=== PATIENT | female | born 1990 | race Caucasian/White ===

== ENCOUNTER 2022-09-06 18:46 | Emergency (ER) | payer MEDICAID, SELFPAY ==
[2022-09-06 18:47] VITALS: BP 156/121; PULSE 94; RESP 16; TEMP 36.4; O2SAT 97; BMI 19.1
[2022-09-06 18:52] VITALS: O2SAT 98
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
[2022-09-06 19:12] LABS: Absolute Lymphocyte Count 2.32 X10^3/uL (0.83-4.51); Absolute Neutrophil Count 13.8 X10^3/uL (2.0-7.7); Basophil# 0.06 X10^3/uL; Basophil% 0.4 % (0-1); Eosinophil# 0.04 X10^3/uL; Eosinophils% 0.2 % (0-5); Hematocrit 37.1 % (37-47); Hemoglobin 12.5 g/dL (12.0-15.0); Lymphocyte # 2.32 X10^3/ul (0.83-4.51); Lymphocyte % 13.7 % (19-41); Mean Corp Hgb Conc 33.7 g/dL (32-36); Mean Corpuscular Hgb 31.8 pg (27.0-32.0); Mean Corpuscular Volume 94.4 fL (81-99); Mean Platelet Vol. 10.5 fl (6.2-12.0); Monocyte# 0.58 X10^3/uL; Monocyte% 3.4 % (0-10); NRBC Flagged by Analyzer 0 % (0-5); Neutrophil # 13.76 X10^3/uL (2.7-7.7); Neutrophil % 81.2 % (47-70); Platelet Count 311 K/mm3 (150-450); RBC Distribution Width CV 12.1 % (11.6-14.6); RBC Distribution Width SD 42.5 fl (35.1-43.9); Red Blood Count 3.93 M/mm3 (4.2-5.4); White Blood Count 16.9 K/mm3 (4.4-11.0)
[2022-09-06 19:18] LABS: Internal QC Validated? YES +Cl - CLEAR BKGD; Pregnancy, Serum, hCG Quali. NEGATIVE Negative
[2022-09-06 19:20] LABS: International Normalized Ratio 1.1; Prothrombin Time (Protime)PT. 14.4 SECONDS (11.7-14.9)
[2022-09-06 19:24] LABS: Anion Gap 6 (5-15); BUN 9 mg/dL (7-18); BUN/Creat Ratio 10.9 RATIO (10-20); Chloride 108 mmol/L (98-107); Creatinine, Serum 0.83 mg/dL (0.55-1.02); EST Glomerular Filtration Rate 86 mL/min (>60); Est Glom Filt Rate - Afr Amer 104 mL/min (>60); Estimated Creatinine Clearance 80.87 ml/min; Glucose 155 mg/dL (74-106); Potassium 3.6 mmol/L (3.5-5.1); Sodium Level 141 mmol/L (136-145)
--- NOTE | 2022-09-06 19:45 | RAD_ITS ---
STUDY: X-RAY - RIGHT TIBIA AND FIBULA REASON FOR EXAM: Female, 32 years old. pain TECHNIQUE: 4 view(s) of the tibia and fibula were obtained. COMPARISON: None. FINDINGS: Normal visualized tibia. Normal visualized fibula. The soft tissue structures are unremarkable. RAD/Tibia & Fibula 2 Views IMPRESSION: Normal x-ray examination of the tibia and fibula. Electronically Signed: Layo Temple MD at 20:11 EST ,
--- NOTE | 2022-09-06 19:45 | RAD_ITS ---
STUDY: X-RAY - PELVIS AND RIGHT HIP REASON FOR EXAM: Female, 32 years old. pain TECHNIQUE: 3 views of the pelvis and hip. COMPARISON: None. FINDINGS: There is a non-specific bowel gas pattern. Normal visualized soft tissue structures. Normal bilateral iliac wings, sacroiliac joints and visualized sacrum. Acute mildly displaced comminuted fractures of the distal bilateral superior pubic rami. Normal pubic symphysis. Normal bilateral ischial tuberosities. Normal visualized femoral head. Normal acetabulum. Normal hip joint. RAD/HIP, UNI W/ Pelvis 2-3 Views IMPRESSION: Normal right hip. Acute mildly displaced fractures of the distal superior pubic rami bilaterally Electronically Signed: Layo Temple MD at 20:11 EST ,
--- NOTE | 2022-09-06 19:45 | RAD_ITS ---
STUDY: X-RAY - RIGHT SHOULDER REASON FOR EXAM: Female, 32 years old. right TECHNIQUE: 2 view(s) of the shoulder. COMPARISON: None. FINDINGS: Normal glenohumeral articulation. Normal acromioclavicular joint. Normal acromion. Normal humeral head and visualized proximal humerus. The soft tissue structures are unremarkable. Normal visualized pulmonary apex. RAD/Shoulder min 2 Views IMPRESSION: Normal x-ray examination of the shoulder. Electronically Signed: Layo Temple MD at 20:12 EST ,
--- NOTE | 2022-09-06 19:45 | RAD_ITS ---
STUDY: X-RAY - RIGHT RADIUS AND ULNA REASON FOR EXAM: Female, 32 years old. pain TECHNIQUE: 2 view(s) of the forearm. COMPARISON: None. FINDINGS: There is no demonstrated soft tissue swelling. Normal visualized radius. There is acute obliquely oriented fracture of the distal third of the ulna shaft with very minor separation of fracture fragments. RAD/Forearm 2 Views IMPRESSION: Acute minimally displaced fracture of the distal third of the ulna. Electronically Signed: Layo Temple MD at 20:08 EST ,
[2022-09-06 19:46] LABS: Alcohol, Blood (Medical)-Serum < 3.0 mg/dL
[2022-09-06] MEDS: Ondansetron 4 MG/2 ML Vial IV (20:39)
[2022-09-06] MEDS: Morphine 4 MG/ML Syringe IV ×2 (20:39→22:35)
[2022-09-06 21:00] VITALS: BP 129/73; PULSE 110; RESP 12; O2SAT 98
--- NOTE | 2022-09-06 21:36 | ED.RN ---
report called to [facility] ED. this RN spoke with Marlene, charge nurse
[2022-09-06 22:00] VITALS: PULSE 88; RESP 18; O2SAT 100
[2022-09-06 23:00] VITALS: PULSE 101; O2SAT 100
== END 2022-09-06 23:14 | disposition short-term general hospital (02) ==
PROVIDERS: Emergency Provider Student in an Organized Health Care Education/Training Program; Visit Provider Student in an Organized Health Care Education/Training Program
DX: S32.10XA Unspecified fracture of sacrum, initial encounter for closed fracture (principal); S32.511A Fracture of superior rim of right pubis, initial encounter for closed fracture; S32.512A Fracture of superior rim of left pubis, initial encounter for closed fracture; S52.201A Unspecified fracture of shaft of right ulna, initial encounter for closed fracture; M25.511 Pain in right shoulder; S80.11XA Contusion of right lower leg, initial encounter; V43.52XA Car driver injured in collision with other type car in traffic accident, initial encounter
CPT/HCPCS: 70450; 71260; 72125; 73030; 73090; 73502; 73590; 74177; 80048; 82077; 84703; 85025; 85610; 93005; 96374; 96375; 96376; 99285; Q9967; A4216; J2405